=== PATIENT | female | born 1970 | race Caucasian/White ===

== ENCOUNTER → 2017-03-27 | Outpatient (CLI) | payer BC ==
[~2017-03-27] MED LIST: BCPILLS PO
--- NOTE | 2017-03-27 15:46 | DIAGNOSTIC IMAGING REPORT ---
SI JOINTS 3 OR MORE VIEWS CLINICAL HISTORY: 47 years-old Female presenting with M54.5 Lower back painLeft SI joint [id number]. TECHNIQUE: Frontal and bilateral oblique views of the sacroiliac joints were obtained. COMPARISON: None. FINDINGS: Sacroiliac joints congruent and symmetric. No significant degenerative change. No radiographic evidence of erosion or osseous fusion. Arcuate lines intact. No significant osseous abnormality of the lower lumbar spine. IMPRESSION: Normal radiographic appearance of the sacroiliac joints. If there is continuing clinical concern, further evaluation with noncontrast MR could be obtained if clinically indicated. Electronically signed by: Beka Manning M.D. 03/27/2017 3:45 PM Dictated Date/Time: 03/27/2017 3:44 PM
--- NOTE | 2017-03-27 16:10 | DIAGNOSTIC IMAGING REPORT ---
L-SPINE MIN 4 VIEWS ROUTINE CLINICAL HISTORY: Lower back pain. COMPARISON: None FINDINGS: Alignment of the lumbar spine is anatomic. Vertebral body heights are maintained. There is no fracture or suspicious lesion. Moderate disc space narrowing with mild osteophytosis is noted at L5-S1. There is mild multilevel facet arthrosis. Several indeterminate left abdominal calcifications are present. IMPRESSION: 1. No lumbar spine fracture or subluxation. 2. Moderate disc space narrowing at L5-S1. 3. Mild multilevel facet arthrosis. Electronically signed by: Reymundo Paiz M.D. 03/27/2017 4:08 PM Dictated Date/Time: 03/27/2017 4:07 PM
== END | disposition home or self-care (01) ==
LOC: C.RAD1850 14:46
PROVIDERS: ATTEND Physician Assistant
DX: M51.37 Other intervertebral disc degeneration, lumbosacral region (principal)

== ENCOUNTER → 2017-09-28 | Outpatient (CLI) | payer OTHER ==
[2017-09-28 09:38] LABS: BASO % 0.6 %; BASO ABS # 0.04 K/uL (0-0.2); EOS % 3.6 %; EOS ABS # 0.23 K/uL (0-0.5); HEMATOCRIT 37.1 % (37-47); HEMOGLOBIN 12.7 g/dL (12.0-16.0); IG# 0.01 K/uL (0.00-0.02); LYMPH ABS # 2.24 K/uL (1.2-3.4); MEAN CELL VOLUME 86.7 fL (80-100); MEAN CORPUSCULAR HEMOGLOBIN 29.7 pg (25-34); MEAN CORPUSCULAR HGB CONC 34.2 g/dl (32-36); MEAN PLATELET VOLUME 10.3 fL (7.4-10.4); MONO % 8.4 %; MONO ABS # 0.54 K/uL (0.11-0.59); NEUT % 52.2 %; NEUT ABS # 3.34 K/uL (1.4-6.5); PLATELET COUNT 269 K/uL (130-400); RED CELL DISTRIBUTION WIDTH CV 12.4 % (11.5-14.5); RED CELL DISTRIBUTION WIDTH SD 39.5 fL (36.4-46.3)
== END | disposition home or self-care (01) ==
LOC: C.LAB1850 08:36
PROVIDERS: ATTEND Internal Medicine
DX: D64.9 Anemia, unspecified (principal); Z13.220 Encounter for screening for lipoid disorders; Z13.1 Encounter for screening for diabetes mellitus

== ENCOUNTER 2021-05-27 19:31 | Observation (INO) ==
--- NOTE | 2021-05-27 20:22 | Emergency Department Note ---
Impression & Plan Acute viral syndrome, Cough, Elevated troponin I level, Myalgia ED Provider Note Provider: Jorge Luis Castillo MD DATE OF SERVICE: 05/27/2021 CHIEF COMPLAINT: High blood pressure, cough HISTORY OF PRESENT ILLNESS: Patient is a 51-year-old female history of hypertension currently on losartan daily presenting today she had a little bit of sinus congestion/URI symptoms few days before Thanksgi but this lasted only several days since he tested Covid negative at that time. Just over a week ago developed a cough that is become moderately productive with colorful sputum. Denies any significant chest pain but states when she coughs hard she gets a little bit of pain in the lower ribs from this and did get to the point today from the coughing she felt like she would vomit. Denies any significant taste or smell changes or abdominal pain. Denies diarrhea. Reports some generalized fatigue today and a mild headache that is resolved. Did not take anything at home for congestion, cough, or for the borderline temperature of 99 Fahrenheit she reports at home. Patient states her temperature usually runs a little bit lower. She did receive the Covid vaccine. She is not vaccinated for influenza. Denies sick contacts to her knowledge. Her boyfriend is well. States she noted today as she is feeling unwell she took her blood pressure several times and noted blood pressures in the 130s and 140s systolics with sometimes diastolics in the 90s to 100s. Given this came here. No syncope or presyncope or dizziness reported. Again denies any chest pain. Boyfriend is tested negative for Covid but has had a bit of a cough over the past several weeks as well. REVIEW OF SYSTEMS: A total of 10 review of systems was obtained and negative except as stated above in the HPI. PAST MEDICAL HISTORY: As noted above MEDICATIONS: Reviewed includes daily morning losartan SOCIAL HISTORY: Non-smoker, works from home PHYSICAL EXAM: GENERAL: alert and oriented in no acute distress seated in chair Head: normocephalic and atraumatic EYES: No injection, discharge or icterus. NECK: Trachea midline. ENT: Mucous membranes pink and moist. Pharynx without erythema or exudate. LUNGS: Airway patent. No retractions. Breath sounds clear with good air entry bilaterally. HEART: Regular rate and rhythm. No chest wall tenderness ABDOMEN: Soft and non-tender, without guarding or rebound. SKIN: Acyanotic, warm, dry, without rashes EXTREMITIES: Without swelling, tenderness or deformity NEUROLOGICAL: No focal deficits. No aphasia. No facial droop or slurred speech. Ambulatory. EK bpm normal sinus rhythm. No PVC or PAC. No acute ST segment elevation or depression. QTC 418. CONTINUOUS CARDIAC MONITORING: was ordered and showed a heart rate of 60s-80s bpm in normal sinus rhythm 1 view chest x-ray per interpretation: No cardiomegaly or pneumothorax or pneumonia noted. No pleural effusions noted or free air under the diaphragm. No significant acute bony abnormality noted. Patient's laboratory studies and imaging reviewed. Differential includes Viral syndrome, strep pharyngitis, tonsillitis, mononucleosis, retropharyngeal abscess, peritonsillar abscess, otitis media, si nusitis, bronchitis, pneumonia, cardiac, pulmonary as well as other pathologies. IMPRESSION/MEDICAL DECISION MAKING: Patient with mild hypertension at this time. Question if it may be reactive mor e to some generalized illness complaints. Question underlying viral illness given the cough with productive nature and her age, blood work, chest x-ray, and EKG ordered. Is vaccinated for Covid but Covid test and influenza test was ordered. Patient without significant focal neurological deficits. She is well- appearing and not hypoxic. Chest x-ray is reassuring on my interpretation of the film without evidence of significant pulmonary congestion, pleural effusion, pneumothorax, or pneumonia. No cardiomegaly noted either. Blood work without significant leukocytosis or anemia. No significant electrolyte abnormalities or signs of renal dysfunction. No significant transaminitis. EKG is reassuring. Troponin however returns significantly elevated at 0.389. Patient denies chest pain. Negative stress test noted in the chart with cardiology evaluation this past year. Influenza and rapid Covid test were negative. Bio fire ordered to look for other possible viral explanations could be causing inflammatory state and symptoms; question if this is a viral myocarditis. Not hypoxic or tachypneic but a CT of the chest was completed to exclude PE and this was negative but some inflammatory infectious findings were noted on the CT scan per radiologist. Given some aspirin here. Will defer full anticoagulation as I have low suspicion for obstructive coronary artery disease at this time. Updated the patient. Blood pressure is improving at this point. Patient well- appearing. Discussed findings and recommended further evaluation here at the hospital and cardiac evaluation. She was in agreement with this. The hospitalist was contacted. DIAGNOSIS: Elevated troponin, cough, myalgias, viral syndrome DISPOSITION: Being evaluated by the hospitalist Patient was agreeable with this plan. Critical Care I have personally spent 31 minutes of critical care time in the direct management of this patient. This includes bedside care, interpretation of diagnostic studies, and testing, discussion with consultants, patient, and other required patient management activities. These minutes is in excess of all separately billable procedures. Preliminary Findings Only See Final Report For Complete Findings CTA CHEST: Left upper lobe patchy infiltrates including areas with a ground-glass appearance consistent with inflammation/infection, including a viral pneumonia such as COVID-19. No pulmonary artery filling defects to suggest pulmonary artery thrombosis. No thoracic aortic aneurysm or dissection is present. Atherosclerotic vascular calcifications. Heart is mildly enlarged. No evidence for right heart strain. No pericardial fluid or thickening. No pleural effusion or pneumothorax. No acute fracture is identified. Degenerative changes of the thoracic spine. Limited images of the upper abdomen are unremarkable. Radiologist: Mina Keane M.D. Study ready at 23:22 and initial results transmitted at 23:32 Past Med/Surg History Medical History Cardiac murmur Chest pain History of actinic keratosis History of colon polyps Surgical History History of colonoscopy Hx of left breast biopsy Family History Sister Family hx of colon cancer Family hx colonic polyps multiple sisters Breast cancer Father Family hx of colon cancer Family hx colonic polyps Brother Family hx colonic polyps 2 Other No family history of adverse response to anesthesia Social History Smoking Status: Never smoker Tobacco Type: Cigarettes Age Started Using Tobacco: 17; Age Quit Using Tobacco: 47; packs per day: 0.5; Years Smoked: 30; Cigarettes Per Day: 5-10; Second Hand Exposure: No; Hx Alcohol Use: Yes (1 glass of wine a Day ) Alcohol type: beer, wine and hard liquor Hx Substance Use: No Preferred Language: Montenegrin Communication Ability: Effective School Librarian Required: No Beliefs That Will Affect Care: None Current Living Situation: Significant Other Current Living Situation Comment: Lives with boyfriend Feels Safe at Home: Yes Assistive Devices: Contacts and Glasses Allergies Allergies Allergy/AdvReac Type Severity Reaction Status Date / Time No Known Allergies Allergy Unknown Verified 05/27/21 21:59 Home Meds Previous Rx's Medication Instructions Recorded mecobalamin (vitamin B12) 1,000 1,000 mcg PO DAILY #90 tab 07/03/20 mcg chewable tablet losartan 50 mg tablet 50 mg PO DAILY #90 tab 02/14/21 naproxen 500 mg tablet 500 mg PO BID PRN #60 tab 04/02/21 Results & Data (ED) Vital Signs Vital Signs - 24 hr 05/27/21 19:35 05/27/21 21:46 Temperature 37.9 C H Temperature Source Temporal Artery Scan Pulse Rate 101 H Pulse Rate [Left] 76 Pulse Rhythm [Left] Regular Pulse Strength [Left] Normal Respiratory Rate 16 17 Respiratory Effort / Characteristics Non-Labored Respiratory Depth Normal Respiratory Pattern Regular Blood Pressure 145/96 H Blood Pressure [Right Arm] 136/96 Blood Pressure Mean 112 Blood Pressure Mean [Right Arm] 109 Blood Pressure Position Sitting Blood Pressure Position [Right Arm] Sitting Pulse Oximetry 99 99 Oxygen Delivery Method Room Air Room Air Sepsis Recent Fever Within 48 Hours No Sepsis New/Unexplained Change in Mental Status No Sepsis Action Taken by Nursing No Action Required Laboratory Data Result diagrams: 05/27/21 21:47 05/27/21 21:47 Lab Results 05/27/21 05/27/21 05/27/21 Range/Units 21:47 21:47 21:47 WBC 5.70 (4.8-10.8) K/uL RBC 4.50 (4.2-5.4) M/uL Hgb 13.4 (12.0-16.0) g/dL Hct 39.5 (37-47) % MCV 87.8 (80-100) fL MCH 29.8 (25-34) pg MCHC 33.9 (32-36) g/dL RDW Std Deviation 39.3 (36.4-46.3) fL RDW Coeff of Lynette 12.2 (11.5-14.5) % Plt Count 253 (130-400) K/uL MPV 10.0 (7.4-10.4) fL Immature Gran % (Auto) 0.2 % Neut % (Auto) 38.6 % Lymph % (Auto) 45.4 % [place] % (Auto) 11.4 % Eos % (Auto) 3.7 % Baso % (Auto) 0.7 % Neut # (Auto) 2.20 (1.4-6.5) K/uL Lymph # (Auto) 2.59 (1.2-3.4) K/uL [place] # (Auto) 0.65 H (0.11-0.59) K/uL Eos # (Auto) 0.21 (0-0.5) K/uL Baso # (Auto) 0.04 (0-0.2) K/uL Immature Gran # (Auto) 0.01 (0.00-0.02) K/uL Sodium 137 (136-145) mmol/L Potassium 3.4 L (3.5-5.1) mmol/L Chloride 105 (98-107) mmol/L Carbon Dioxide 27 (21-32) mmol/L Anion Gap 5.0 (3-11) BUN 18 (7-18) mg/dl Creatinine 1.11 (0.6-1.2) mg/dl Est Cr Clr Drug Dosing 58.9 ml/min Est GFR ( Amer) 67.5 ml/min Est GFR (Non-Af Amer) 58.3 ml/min BUN/Creatinine Ratio 15.9 (10-20) Glucose 96 (70-99) mg/dl Calcium 9.2 (8.5-10.1) mg/dl Total Bilirubin 0.2 (0.2-1) mg/dl AST 18 (15-37) U/L ALT 26 (12-78) Alkaline Phosphatase 70 (45-117) U/L Troponin I 0.389 H* (0-0.045) ng/ml Total Protein 8.2 (6.4-8.2) gm/dl Albumin 4.0 (3.4-5.0) gm/dl Globulin 4.2 H (2.5-4.0) gm/dl Albumin/Globulin Ratio 1.0 (0.9-2) HCG, Qual Negative (Negative) Influ A Molecular Assay (Negative) Influ B Molecular Assay (Negative) SARS-CoV-2, RNA, NAAT (NEGATIVE) 05/27/21 05/27/21 Range/Units 21:54 21:54 WBC (4.8-10.8) K/uL RBC (4.2-5.4) M/uL Hgb (12.0-16.0) g/dL Hct (37-47) % MCV (80-100) fL MCH (25-34) pg MCHC (32-36) g/dL RDW Std Deviation (36.4-46.3) fL RDW Coeff of Lynette (11.5-14.5) % Plt Count (130-400) K/uL MPV (7.4-10.4) fL Immature Gran % (Auto) % Neut % (Auto) % Lymph % (Auto) % [place] % (Auto) % Eos % (Auto) % Baso % (Auto) % Neut # (Auto) (1.4-6.5) K/uL Lymph # (Auto) (1.2-3.4) K/uL [place] # (Auto) (0.11-0.59) K/uL Eos # (Auto) (0-0.5) K/uL Baso # (Auto) (0-0.2) K/uL Immature Gran # (Auto) (0.00-0.02) K/uL Sodium (136-145) mmol/L Potassium (3.5-5.1) mmol/L Chloride (98-107) mmol/L Carbon Dioxide (21-32) mmol/L Anion Gap (3-11) BUN (7-18) mg/dl Creatinine (0.6-1.2) mg/dl Est Cr Clr Drug Dosing ml/min Est GFR ( Amer) ml/min Est GFR (Non-Af Amer) ml/min BUN/Creatinine Ratio (10-20) Glucose (70-99) mg/dl Calcium (8.5-10.1) mg/dl Total Bilirubin (0.2-1) mg/dl AST (15-37) U/L ALT (12-78) Alkaline Phosphatase (45-117) U/L Troponin I (0-0.045) ng/ml Total Protein (6.4-8.2) gm/dl Albumin (3.4-5.0) gm/dl Globulin (2.5-4.0) gm/dl Albumin/Globulin Ratio (0.9-2) HCG, Qual (Negative) Influ A Molecular Assay Negative (Negative) Influ B Molecular Assay Negative (Negative) SARS-CoV-2, RNA, NAAT NEGATIVE (NEGATIVE) Administered Medications Discontinued Medications Aspirin (Aspirin 81 Mg Chew) 324 mg PO NOW STA Stop: 05/27/21 22:39 Last Admin: 05/27/21 23:16 Dose: 324 mg Documented by: [id number] Ioversol (Optiray 320 125ml) 120 ml IV ONCE ONE Stop: 05/27/21 23:08 Last Admin: 05/27/21 23:07 Dose: 120 ml Documented by: [id number] Discharge Plan Visit Data Chief Complaint: Hypertension Stated Complaint: HIGH BP, ON BP MEDICINE ED Provider: Jorge Luis Castillo Discharge Problem: Acute viral syndrome, Cough, Elevated troponin I level, Myalgia Patient Disposition: Being Evaluated by Hospitalist Forms Stand Alone Forms: [facility] Prescriptions Prescriptions: No Action losartan 50 mg tablet 50 mg PO DAILY Qty: 90 RF: 3 naproxen 500 mg tablet 500 mg PO BID PRN (Reason: pain) Qty: 60 RF: 1 mecobalamin (vitamin B12) 1,000 mcg tablet,chewable 1,000 mcg PO DAILY Qty: 90 RF: 3 Referrals Referrals: Kriss Cooper MD [Primary Care Provider] -
[2021-05-27 22:02] LABS: Basophils # (auto) 0.04 K/uL (0-0.2); Basophils % (auto) 0.7 %; Eosinophils # (auto) 0.21 K/uL (0-0.5); Eosinophils % (auto) 3.7 %; Hematocrit (blood only) 39.5 % (37-47); Hemoglobin 13.4 g/dL (12.0-16.0); Immature Granulocytes # (auto) 0.01 K/uL (0.00-0.02); Immature Granulocytes % (auto) 0.2 %; Lymphocytes # (auto) 2.59 K/uL (1.2-3.4); Lymphocytes % (auto) 45.4 %; Mean Corpuscular Hemoglobin 29.8 pg (25-34); Mean Corpuscular Hgb Conc 33.9 g/dL (32-36); Mean Corpuscular Volume 87.8 fL (80-100); Monocytes # (auto) 0.65 K/uL (0.11-0.59); Monocytes % (auto) 11.4 %; Neutrophils % (auto) 38.6 %; Platelet Count 253 K/uL (130-400); RDW Coefficient of Variation 12.2 % (11.5-14.5); RDW Standard Deviation 39.3 fL (36.4-46.3)
[2021-05-27 22:19] LABS: Influenza A virus by PCR Negative (Negative); Influenza B virus by PCR Negative (Negative)
[2021-05-27 22:21] LABS: BUN Creatinine Ratio 15.9 (10-20); Calcium 9.2 mg/dl (8.5-10.1); Creatinine Clr Calc Pharmacy 58.9 ml/min; Est GFR (African American) 67.5 ml/min; Est GFR (Non-African American) 58.3 ml/min; Potassium 3.4 mmol/L (3.5-5.1)
[2021-05-27 22:31] LABS: Bilirubin,Total 0.2 mg/dl (0.2-1); Globulin 4.2 gm/dl (2.5-4.0); Total Protein 8.2 gm/dl (6.4-8.2); Troponin I 0.389 ng/ml (0-0.045)
[2021-05-27] MEDS ORDERED: ASPIRIN 81 MG CHEW PO STA (22:38)
[2021-05-27] MEDS ORDERED: OPTIRAY 320 125ml IV ONE (23:07)
[2021-05-27 23:36] LABS: Pregnancy Test, Serum Negative (Negative)
--- NOTE | 2021-05-28 01:58 | History & Physical Report ---
Date of Service May 28, 2021 Assessment & Plan (1) Elevated troponin: Plan: 51 yo F w/ pMHx. of dyslipidemia, HTN, low back pain here for evaluation after she noted high blood pressure at home and was found to have an elevated troponin. Elevated troponin Chest pain although reproducible and likely/potentially related to cough Unclear etiology at this time potentially 2/2 zeenat-pericarditis vs. supply demand mismatch 2/2 pneumonia and would want to rule out ACS (risk factors include HTN and dyslipidemia) Viral panel positive for rhinovirus which can rarely cause myopericarditis negative stress ECHO @ 92% MPHR on 02/22/2020 - aspirin given in the ER - trend troponin Q6H X3 - ECHO ordered to evaluate for myopericarditis and look for wall motion abnormalities - monitor on a telemetry floor - a1c and lipid profile ordered for risk stratification Pneumonia, community acquired CT with FANY consolidation along with productive cough nl HR, WBC 13.4, nl. procalcitonin, temp. 37.9, sat. 96% on RA COVID, influenza negative viral panel positive for rhinovirus - started Ceftriaxone and Azithromycin - could likely de-escalate antibiotics quickly given reassuring labs and vitals; negative procal. reassuring but could represent early superimposed bacterial pne umonia - duoneb ordered HTN, stable - continue home Losartan DVT: SCDs Code: full Diet: regular History of Present Illness Chief Complaint: HTN Primary Care Provider: Kriss Cooper MD Ale Bryan has a past medical history of dyslipidemia, HTN, low back pain and ocular migraines. She came in after she noted high blood pressure at home 130's- 140's systolic. She was sick for about 10 day after thanks giving and then developed a cough about one weeks ago. She has congestion, slightly productive cough with, "dime size" colorful brown sputum without blood. She was having a normal day today when she noticed that her heart was racing and had a mild headache that has since resolved. Her heart was racing for approx. one minute and then resolved. She notes dizziness and feeling weak or winded when walking. She has not taken any medication for her symptoms and has been eating and drinking well. Social: working from home tobacco use: not currently using tobacco previously smoked approx. 5 cigarettes a day for 15 year and quit one year ago ETOH: approx. 4 drinks / week Rec. drug use: denies Allergies Allergy/AdvReac Type Severity Reaction Status Date / Time No Known Allergies Allergy Unknown Verified 05/27/21 21:59 Home Medications Medication Instructions Recorded Confirmed Type mecobalamin (vitamin B12) 1,000 1,000 mcg PO DAILY #90 tab 07/03/20 05/27/21 Rx mcg chewable tablet losartan 50 mg tablet 50 mg PO DAILY #90 tab 02/14/21 05/27/21 Rx naproxen 500 mg tablet 500 mg PO BID PRN #60 tab 04/02/21 05/27/21 Rx Past Med/Surg History Medical History Cardiac murmur no coal cutter Chest pain History of actinic keratosis History of colon polyps Surgical History History of colonoscopy Hx of left breast biopsy benign--needle biopsy--only had local anesthesia Family History (Updated 05/28/21 @ 17:29 by Mallory Rudolph) Sister Family hx of colon cancer Family hx colonic polyps multiple sisters Breast cancer Hypertension Father Family hx of colon cancer Family hx colonic polyps Congestive heart failure (CHF) Myocardial infarction Stroke Hypertension Brother Family hx colonic polyps 2 Hypertension Atrial fibrillation Mother Myocardial infarction Hypertension Other No family history of adverse response to anesthesia Social History Smoking Status: Never smoker Tobacco Type: Cigarettes Age Started Using Tobacco: 17; Age Quit Using Tobacco: 47; packs per day: 0.5; Years Smoked: 30; Cigarettes Per Day: 5-10; Second Hand Exposure: No; Hx Alcohol Use: No Hx Substance Use: No Preferred Language: Yi Communication Ability: Effective Maintenance Director Required: No Beliefs That Will Affect Care: None Current Living Situation: Significant Other Current Living Situation Comment: Lives with boyfriend Other Information That Helps Us Care for You: No Feels Safe at Home: Yes Safety Concerns: Feels Safe At This Time Assistive Devices: Glasses Review of Systems Review of Systems: Constitutional: denies nausea, vomiting, weight loss admits chills, fatigue, night sweats Head: denies trauma, LOC, vision changes admits headache Neurologic: denies syncope, focal weakness, numbness and tingling ENT: denies rhinorrhea, swollen lymph nodes admits stuffiness and sore throat Pulm.: admits cough and sputum production GI: denies indigestion, diarrhea, blood in stool : denies dysuria, polyuria, urgency Physical Exam Constitutional: well developed and well nourished; no acute distress Eyes: PERRL, conjunctivae normal, anicteric sclerae ENMT: external ear and nose normal, oropharynx normal Neck: normal visual inspection Respiratory: normal respiratory effort, lungs clear to auscultation Auscultation: no crackles, no rales, no rhonchi and no wheezes Cardiovascular: RRR, no murmur, no edema Chest (Breasts): Additional Comments: tenderness over costochondral cartilage Gastrointestinal (Abdomen): normal bowel sounds, soft, nontender, no hepatosplenomegaly Musculoskeletal: no cyanosis or clubbing, extremities motor strength 5/5 Skin: no rashes, warm and dry Neurologic: no focal motor deficits Psychiatric: A+Ox3, euthymic affect Results & Data Results & Data ([facility]) Vital Signs (Past 12 Hours) Vital Signs Temp Pulse Pulse Resp BP BP Pulse Ox 05/27/21 21:46 76 17 136/96 99 05/27/21 19:35 37.9 C H 101 H 16 145/96 H 99 CBC Results Results Complete Blood Count Results: RBC 4.33 M/uL (4.2-5.4) 05/28/21 WBC 4.50 K/uL (4.8-10.8) L 05/28/21 Hgb 12.8 g/dL (12.0-16.0) 05/28/21 Hct 37.7 % (37-47) 05/28/21 Plt Count 213 K/uL (130-400) 05/28/21 Chemistry (BMP) Results BMP Results: Sodium 138 mmol/L (136-145) 05/28/21 Potassium 3.4 mmol/L (3.5-5.1) L 05/28/21 Chloride 107 mmol/L (98-107) 05/28/21 Carbon Dioxide 26 mmol/L (21-32) 05/28/21 Anion Gap 5.0 (3-11) 05/28/21 BUN 12 mg/dl (7-18) 05/28/21 Creatinine 0.97 mg/dl (0.6-1.2) 05/28/21 Glucose 116 mg/dl (70-99) H 05/28/21 Code Status & VTE Plan VTE Prophylaxis Plan VTE Prophylaxis will be ordered: Yes Supervising Physician Co-Signing Physician Notes Patient seen and examined, chart reviewed, case discussed with Dr. Thrasher and I agree with her assessment and plan as above. In brief, patient is a 51yo female - reports recent URI that occurred before - symptoms lasted appx 10d. She came to the ER today with observation of high blood pressure at home. Found to have elevated troponin Complaining of some chest discomfort Patient is Covid vaccinated x 2 Exam unremarkable. Afebrile, HD stable. No clinical evidence of failure Nontoxic in appearance, no rash MMM, Neck supple +S1/S2, regular, no m/r/g, no reproducible chest wall discomfort Lungs CTA Abd - +BS, soft NT/ND Ext - no edema Labs and images reviewed Assessment/Plan - Mild chest discomfort, elevated troponin, recent URI - ?myopericarditis -Cardiac monitoring -Trend troponin -Tx for possible CAP -Remainder of plan as above Resident Activity Tracking Resident Involvement: Resident Care Provided Care Provided: Adult Hospital Medicine
[2021-05-28] MEDS ORDERED: BENZONATATE 100 MG CAPSULE PO PRN (02:35)
[2021-05-28] MEDS: cefTRIAXone SODIUM 1,000 MG in DEXTROSE 5% 50 ML IV SCH (02:45)
[2021-05-28 03:34] LABS: Adenovirus PCR Not Detected (NotDetected); Bordetella parapertussis PCR Not Detected (NotDetected); Bordetella pertussis PCR Not Detected (NotDetected); Chlamydia pneumoniae PCR Not Detected (NotDetected); Coronavirus 229E PCR Not Detected (NotDetected); Coronavirus CoV-2 (COVID19)PCR Not Detected (NotDetected); Coronavirus HKU1 PCR Not Detected (NotDetected); Coronavirus NL63 PCR Not Detected (NotDetected); Coronavirus OC43PCR Not Detected (NotDetected); Human Metapneumovirus PCR Not Detected (NotDetected); Influenza A PCR Not Detected (NotDetected); Influenza B PCR Not Detected (NotDetected); Mycoplasma pneumoniae PCR Not Detected (NotDetected); Parainfluenza Virus 1 PCR Not Detected (NotDetected); Parainfluenza Virus 2 PCR Not Detected (NotDetected); Parainfluenza Virus 3 PCR Not Detected (NotDetected); Parainfluenza Virus 4 PCR Not Detected (NotDetected); Respiratory Syncytial VirusPCR Not Detected (NotDetected)
[2021-05-28 03:47] LABS: Rhinovirus/Enterovirus PCR DETECTED (NotDetected)
[2021-05-28] MEDS: AZITHROMYCIN 500 MG in DEXTROSE 5% 250 ML IV SCH (03:58)
--- NOTE | 2021-05-28 07:25 | XRay Report ---
SINGLE VIEW CHEST CLINICAL HISTORY: Cough. FINDINGS: An AP, portable, upright chest radiograph is obtained. No prior studies are available for c omparison at the time of dictation. The cardiomediastinal silhouette is unremarkable. There is mild patchy airspace consolidation in the left upper lobe. No large pleural effusion or pneumothorax is se en. The bony thorax is grossly intact. IMPRESSION: Patchy airspace consolidation is seen in the left upper lobe, typical for pneumonia. Clin ical correlation will be required and radiographic follow-up to resolution is recommended. ACT 112: Negative or not required by law. Electronically signed by: Luis Fernando Benavides M.D. 05/28/2021 7:23 AM
--- NOTE | 2021-05-28 07:27 | CT Scan Report ---
CT angio chest PE protocol CLINICAL HISTORY: PE, cough, weak, elev troponin TECHNIQUE: Multidetector row helical CT of the chest was performed. Coronal and sagittal reformations were obtained. Automated dose lowering techniques and/or adjustment according to patient size were u tilized for this exam. Comparison: None available at the time of this dictation. FINDINGS: Lungs and pleura: Groundglass opacities are seen in the left upper lobe. Heart and pericardium: Heart size is normal. No pericardial effusion. Vessels: No evidence of pulmonary embolism. Mediastinum and william: Unremarkable. Chest wall and lower neck: Unremarkable. Abdomen: Unremarkable. Bones: Unremarkable. IMPRESSION: No evidence of pulmonary embolism. ACT 112: Negative or not required by law. Electronically signed by: Yvan Osorio M.D. 05/28/2021 7:26 AM
[2021-05-28] MEDS: ALBUT/IPRATROP 3MG/0.5MG NEB 3 ML VIAL NEB SCH ×3 (07:29→15:39)
[2021-05-28] MEDS: LOSARTAN POTASSIUM 50 MG TAB PO SCH (08:04)
[2021-05-28 08:23] LABS: Hematocrit (blood only) 37.7 % (37-47); Hemoglobin 12.8 g/dL (12.0-16.0); Mean Corpuscular Hemoglobin 29.6 pg (25-34); Mean Corpuscular Volume 87.1 fL (80-100); Mean Platelet Volume 9.6 fL (7.4-10.4); Platelet Count 213 K/uL (130-400); RDW Coefficient of Variation 12.2 % (11.5-14.5); RDW Standard Deviation 39.2 fL (36.4-46.3); Red Blood Count 4.33 M/uL (4.2-5.4)
[2021-05-28 08:41] LABS: BUN Creatinine Ratio 12.5 (10-20); Calcium 8.6 mg/dl (8.5-10.1); Creatinine Clr Calc Pharmacy 67.4 ml/min; Est GFR (African American) 79.5 ml/min; Est GFR (Non-African American) 68.6 ml/min
[2021-05-28 08:45] LABS: ALC (manual) 2.13 K/uL (1.2-3.4); ANC (manual) 1.98 K/uL (1.4-6.5); Eosinophils # (manual) 0.04 K/uL (0-0.5); Eosinophils % (manual) 0.9 %; Lymphocytes # (manual) 1.14 K/uL (1.2-3.4); Lymphocytes % (manual) 25.4 %; Monocytes # (manual) 0.36 K/uL (0.11-0.59); Monocytes % (manual) 7.9 %; Neutrophils # (manual) 1.98 K/uL (1.4-6.5); Neutrophils % (manual) 43.9 %; Reactive Lymphocytes # (manual) 0.99 K/uL; Reactive Lymphocytes % (manual) 21.9 %
[2021-05-28 08:58] LABS: Troponin I 0.361 ng/ml (0-0.045)
[2021-05-28 09:34] LABS: Estimated Average Glucose 103 mg/dl; Hemoglobin A1C 5.2 % (4.5-5.6)
[2021-05-28 09:44] LABS: Potassium 3.4 mmol/L (3.5-5.1)
--- NOTE | 2021-05-28 11:15 | Hospitalist Progress Note ---
Date of Service May 28, 2021 Assessment & Plan (1) Elevated troponin: Plan: 51 yo F w/ pMHx. of dyslipidemia, HTN, low back pain here for evaluation after she noted high blood pressure at home and was found to have an elevated troponin. Elevated troponin Chest pain although reproducible and likely/potentially related to cough Unclear etiology at this time potentially 2/2 zeenat-pericarditis vs. supply demand mismatch 2/2 pneumonia and would want to rule out ACS (risk factors include HTN and dyslipidemia) Viral panel positive for rhinovirus which can rarely cause myopericarditis negative stress ECHO @ 92% MPHR on 02/22/2020 - aspirin given in the ER - trend troponin Q6H X3 - ECHO ordered to evaluate for myopericarditis and look for wall motion abnormalities - monitor on a telemetry floor - a1c and lipid profile ordered for risk stratification Pneumonia, community acquired CT with FANY consolidation along with productive cough nl HR, WBC 13.4, nl. procalcitonin, temp. 37.9, sat. 96% on RA COVID, influenza negative viral panel positive for rhinovirus - started Ceftriaxone and Azithromycin - could likely de-escalate antibiotics quickly given reassuring labs and vitals; negative procal. reassuring but could represent early superimposed bacterial pne umonia - duoneb ordered HTN, stable - continue home Losartan DVT: SCDs Code: full Diet: regular Admission and Anticipated Discharge Date Admission Date: May 28, 2021 Results & Data Results & Data ([facility]) Vital Signs (Past 12 Hours) Vital Signs Temp Pulse Pulse Pulse Resp BP BP 05/28/21 10:41 36.6 C 79 79 18 05/28/21 07:29 75 18 05/28/21 07:24 82 20 126/85 05/28/21 04:26 36.7 C 68 16 126/79 05/28/21 04:11 36.8 C 64 16 126/78 05/28/21 04:06 64 16 124/82 05/28/21 04:00 64 16 124/81 05/28/21 02:04 81 18 139/84 Pulse Ox 05/28/21 10:41 97 05/28/21 07:29 97 05/28/21 07:24 97 05/28/21 04:26 99 05/28/21 04:11 98 05/28/21 04:06 98 05/28/21 04:00 98 05/28/21 02:04 96
--- NOTE | 2021-05-28 12:49 | XCELERA ---
[id number]\[id number]
--- NOTE | 2021-05-28 13:37 | Discharge Summary ---
Date of Service May 28, 2021 Admission HPI Per Admitting Provider Ale Bryan has a past medical history of dyslipidemia, HTN, low back pain and ocular migraines. She came in after she noted high blood pressure at home 130's- 140's systolic. She was sick for about 10 day after thanks giving and then developed a cough about one weeks ago. She has congestion, slightly productive cough with, "dime size" colorful brown sputum without blood. She was having a normal day today when she noticed that her heart was racing and had a mild headache that has since resolved. Her heart was racing for approx. one minute and then resolved. She notes dizziness and feeling weak or winded when walking. She has not taken any medication for her symptoms and has been eating and drinking well. Social: working from home tobacco use: not currently using tobacco previously smoked approx. 5 cigarettes a day for 15 year and quit one year ago ETOH: approx. 4 drinks / week Rec. drug use: denies Admission Exam Per Admitting Provider Constitutional: well developed and well nourished; no acute distress Eyes: PERRL, conjunctivae normal, anicteric sclerae ENMT: external ear and nose normal, oropharynx normal Neck: normal visual inspection Respiratory: normal respiratory effort, lungs clear to auscultation Auscultation: no crackles, no rales, no rhonchi and no wheezes Cardiovascular: RRR, no murmur, no edema Chest (Breasts): Additional Comments: tenderness over costochondral cartilage Gastrointestinal (Abdomen): normal bowel sounds, soft, nontender, no hep atosplenomegaly Musculoskeletal: no cyanosis or clubbing, extremities motor strength 5/5 Skin: no rashes, warm and dry Neurologic: no focal motor deficits Psychiatric: A+Ox3, euthymic affect Discharge Data Allergies Allergy/AdvReac Type Severity Reaction Status Date / Time No Known Allergies Allergy Unknown Verified 05/27/21 21:59 Consultations 05/27/21 23:22 ED Decision to Admit Stat Ordered Studies 05/27/21 22:39 CT angio chest PE protocol Urgent Hospital Course (1) Elevated troponin: 51 yo F w/ pMHx. of dyslipidemia, HTN, low back pain here for evaluation after she noted high blood pressure at home and was found to have an elevated troponin. Elevated troponin Chest pain although reproducible and likely/potentially related to cough Unclear etiology at this time potentially 2/2 zeenat-pericarditis vs. supply demand mismatch 2/2 pneumonia and would want to rule out ACS (risk factors include HTN and dyslipidemia) Viral panel positive for rhinovirus which can rarely cause myopericarditis negative stress ECHO @ 92% MPHR on 02/22/2020 - aspirin given in the ER - trend troponin Q6H X3 - ECHO ordered to evaluate for myopericarditis and look for wall motion abnormalities - monitor on a telemetry floor - a1c and lipid profile ordered for risk stratification Pneumonia, community acquired CT with FANY consolidation along with productive cough nl HR, WBC 13.4, nl. procalcitonin, temp. 37.9, sat. 96% on RA COVID, influenza negative viral panel positive for rhinovirus - started Ceftriaxone and Azithromycin - could likely de-escalate antibiotics quickly given reassuring labs and vitals; negative procal. reassuring but could represent early superimposed bacterial pneumonia - duoneb ordered HTN, stable - continue home Losartan DVT: SCDs Code: full Diet: regular Discharge Plan Discharge Items Reason For Visit: CARDIAC EVALUATION Follow-up/Referrals: Kriss Cooper MD [Primary Care Provider] - Medications and DC Order Prescriptions: No Action losartan 50 mg tablet 50 mg PO DAILY Qty: 90 RF: 3 naproxen 500 mg tablet 500 mg PO BID PRN (Reason: pain) Qty: 60 RF: 1 mecobalamin (vitamin B12) 1,000 mcg tablet,chewable 1,000 mcg PO DAILY Qty: 90 RF: 3 Admission Data Admit Date/Time: 05/28/21 00:13 Attending Provider: Sanjuana Skinner Admit Provider: Huy Thrasher Primary Care Provider: Kriss Cooper V. Other Providers: Vee Busby
[2021-05-28] MEDS ORDERED: ACETAMINOPHEN 325 MG TAB PO PRN ×2 (14:58→19:33)
--- NOTE | 2021-05-28 17:18 | Medical Student Progress Note ---
Date of Service May 28, 2021 Assessment & Plan (1) Chest pain: Plan: 51-year-old female w/ past medical history of dyslipidemia, HTN, low back pain who had been having substernal chest pain, cough and racing of heart here for evaluation was found to have an elevated troponin in ED. Chest pain with elevated troponin: - 05/27: Troponin was .389, 05/28 am: 361, 05/28 pm: .249 - EKG 05/27 with normal sinus rhythm, possible left atrial enlargement -Echo 05/28 unremarkable - chest pain possibly MSK vs pleuritic sec to pneumonia - considering risk factors of strong f/h of ASCVD; h/o past smoking and elevated troponin - continue to follow troponin and review further plan in am. - Total cholesterol 205, A1c 5.2. Pneumonia - labs resulted positive for entero/rhinovirus. -CT 05/27 revealed FANY pneumonia -Crackles heard in FANY on physical exam -Substernal tenderness to palpation L> R -Continue: IV Ceftriaxone 1000 mg QD IV azithromycin 500 mg QD tylenol 325 mg q4h PRN Albuterol/Ipratrop 3mL nebulizer q4h Benzonatate 100 mg PO TID PRN HTN: - stable - continue home Losartan 50 mg QD at home Sleep disturbance - ordered lunesta prn while in hospital since she hasn't had much sleep last night. DVT prophylaxis: SCDs Code: full Diet: regular Dispo: Tele (2) Community acquired pneumonia: Admission and Anticipated Discharge Date Admission Date: May 28, 2021 Supervising Attestation Medical Student Supervision Note: I was personally present during medical student patient encounter and independently interviewed and examined the patient and verified the seals history and physical, reviewed labs and image studies, discussed the case with Mallory Rudolph and agree with the findings and care plan. Trop elevation - ? sec to pericarditis/coronary syndrome considering family history. down trending. Monitor overnight continue IV abx, nebs. Subjective Patient was seen this morning and re-visited in the afternoon. She had no acute events overnight. Her cough is still present and productive, with a wetness and heaviness in the center of her chest. She also shares that she has substernal tenderness, with the left side being more noticeable than the right. She states she feels it most in her diaphragm and is most painful with coughing. It does not radiate and she does not feel discomfort in her lungs or experience difficulty breathing. After her nebulizer treatment in the morning, she felt "a little shakey". She denies nausea, vomiting, diarrhea, fever, shortness of breath, lightheadedness, dizziness, palpitations. She also denies a history of asthma, allergies, COPD. She did share that she has extensive family history of heart concerns and her chart was updated accordingly. This afternoon, she stated that she was feeling about the same that she was upon admission to the ED, with cough and substernal chest pain still present. She had a headache which was treated with Tylenol. Review of Systems Review of Systems: All systems reviewed & are unremarkable except as noted in HPI & below Constitutional: as per Subjective / HPI Eyes: as per Subjective / HPI Ear, Nose, Mouth, Throat: as per Subjective / HPI Respiratory: + cough, + pain with cough and + sputum production Cardiovascular: as per Subjective / HPI and + chest pain Additional Comments: substernal tender chest pain Gastrointestinal: as per Subjective / HPI Physical Exam Constitutional: WD/WN, vitals as above well developed and well nourished Eyes: PERRL, conjunctivae normal, anicteric sclerae ENMT: external ear and nose normal, oropharynx normal Neck: trachea midline, no thyromegaly Respiratory: normal respiratory effort, + cough and symmetric chest movement Auscultation: + crackles crackles left upper lobe Cardiovascular: RRR, no murmur, no edema Heart Sounds: normal S1 and normal S2 Extremities: normal capillary refill Chest (Breasts): Additional Comments: tenderness in substernal region, especially with palpation (across/under bilateral breasts) Skin: no rashes, warm and dry Neurologic: PERRL, EOMI, accommodation nl, no face palsy, no dysarthria Results & Data ([facility]) Vital Signs (Past 12 Hours) Vital Signs Temp Pulse Pulse Resp BP BP Pulse Ox 05/28/21 16:52 36.9 C 92 H 15 127/97 98 05/28/21 15:39 79 16 99 05/28/21 13:33 37.2 C 103 H 16 113/63 98 05/28/21 11:43 69 16 98 05/28/21 10:41 36.6 C 79 79 18 97 05/28/21 07:29 75 18 97 05/28/21 07:24 82 20 126/85 97
[2021-05-28] MEDS ORDERED: ESZOPICLONE 1 MG TAB PO PRN (17:40)
[2021-05-28] MEDS ORDERED: ALBUT/IPRATROP 3MG/0.5MG NEB 3 ML VIAL NEB PRN (17:51)
--- NOTE | 2021-05-28 21:57 | Billing Data ---
Date of Service May 28, 2021 Coding Level of Care Code INT OBSERVATION CARE 52M LVL 2
[2021-05-29] MEDS: cefTRIAXone SODIUM 1,000 MG in DEXTROSE 5% 50 ML IV SCH (06:19)
[2021-05-29] MEDS: AZITHROMYCIN 500 MG in DEXTROSE 5% 250 ML IV SCH (06:32)
[2021-05-29] MEDS: LOSARTAN POTASSIUM 50 MG TAB PO SCH (09:03)
--- NOTE | 2021-05-29 10:11 | Discharge Summary ---
Date of Service May 29, 2021 Admission HPI Per Admitting Provider Ale Bryan has a past medical history of dyslipidemia, HTN, low back pain and ocular migraines. She came in after she noted high blood pressure at home 130's- 140's systolic. She was sick for about 10 day after thanks giving and then developed a cough about one weeks ago. She has congestion, slightly productive cough with, "dime size" colorful brown sputum without blood. She was having a normal day today when she noticed that her heart was racing and had a mild headache that has since resolved. Her heart was racing for approx. one minute and then resolved. She notes dizziness and feeling weak or winded when walking. She has not taken any medication for her symptoms and has been eating and drinking well. Social: working from home tobacco use: not currently using tobacco previously smoked approx. 5 cigarettes a day for 15 year and quit one year ago ETOH: approx. 4 drinks / week Rec. drug use: denies Admission Exam Per Admitting Provider Constitutional: well developed and well nourished; no acute distress Eyes: PERRL, conjunctivae normal, anicteric sclerae ENMT: external ear and nose normal, oropharynx normal Neck: normal visual inspection Respiratory: normal respiratory effort, lungs clear to auscultation Auscultation: no crackles, no rales, no rhonchi and no wheezes Cardiovascular: RRR, no murmur, no edema Chest (Breasts): Additional Comments: tenderness over costochondral cartilage Gastrointestinal (Abdomen): normal bowel sounds, soft, nontender, no hepatospl enomegaly Musculoskeletal: no cyanosis or clubbing, extremities motor strength 5/5 Skin: no rashes, warm and dry Neurologic: no focal motor deficits Psychiatric: A+Ox3, euthymic affect Principal Diagnosis Left upper lobe pneumonia Discharge Exam Constitutional WD/WN, vitals as above Eyes PERRL, conjunctivae normal, anicteric sclerae Respiratory normal respiratory effort, lungs clear to auscultation Cardiovascular RRR, no murmur, no edema Gastrointestinal (Abdomen) normal bowel sounds, soft, nontender, no hepatosplenomegaly Musculoskeletal no cyanosis or clubbing, extremities motor strength 5/5 Discharge Data Allergies Allergy/AdvReac Type Severity Reaction Status Date / Time No Known Allergies Allergy Unknown Verified 05/27/21 21:59 Consultations 05/27/21 23:22 ED Decision to Admit Stat Ordered Studies 05/27/21 22:39 CT angio chest PE protocol Urgent Hospital Course (1) Elevated troponin: 51 yo F w/ pMHx. of dyslipidemia, HTN, low back pain here for evaluation after she noted high blood pressure at home and was found to have an elevated troponin. Elevated troponin: 0.389 on admission, 0.140 on discharge Unclear etiology at this time potentially 2/2 zeenat-pericarditis vs. supply demand mismatch 2/2 pneumonia Viral panel positive for rhinovirus which can rarely cause myopericarditis Strong family history of ASCVD. negative stress ECHO @ 92% MPHR on 02/22/2020 - aspirin given in the ER - trend troponin Q6H X3 - ECHO ordered to evaluate for myopericarditis and look for wall motion abnormalities - negative - monitored on telemetry floor - Cards curbside consult: pt stable enough for outpt. stress test; would see pt. approximately 2 wks after symptoms resolve. PCP Dr. Dominguez made aware of the plan. Pneumonia, community acquired CT with FANY consolidation along with productive cough nl HR, WBC 13.4, nl. procalcitonin, temp. 37.9, sat. 96% on RA COVID, influenza negative viral panel positive for rhinovirus - started Ceftriaxone and Azithromycin; - duoneb PRN - converted Ceftriaxone to PO Cepodoxime 200 mg BID X5 days; Azithromycin once daily 500 mg first day, 250 mg for 4 days. HTN, stable - continue home Losartan Total Time Total Time Spent Total Time Spent (In Minutes): 10 Discharge Plan Discharge Items Patient Disposition: Home - Self-Care Reason For Visit: CARDIAC EVALUATION Discharge Diagnosis: Left upper lobe pneumonia Activity: Per Instructions section Non-emergency contact: Primary Care Provider and Public Relations Manager Call non-emergency contact if: you have any medication questions and your symptoms worsen Follow-up/Referrals: Kriss Cooper MD [Primary Care Provider] - Diet: Regular Addtl Attending Provider Instructions: You were admitted to the hospital for pneumonia and elevated troponins. You were evaluated with imaging and blood work, and were treated with antibiotics and inhalers. Your troponin level, a measure of cardiac stress, were mildly elevated. Since your initial test, all subsequent checks of your troponin were lower than the previous test, or trended downward. You improved clinically over the course of your stay and a re now stable enough to continue your treatment at home. A discharge summary will be sent to your primary care physician to ensure continuity of care. Please bring this discharge summary with you to your next office appointment so that your provider can review it at that time. Follow-up appointments: * Make a follow-up appointment with your PCP within the next week. It is very important that you follow up with them shortly after discharge from the hospital. Your PCP will have you perform a stress echocardiogram to evaluate your heart after your pneumonia symptoms have resolved. * Keep all your follow-up appointments as already scheduled. If you cannot make an appointment, notify your provider. Medications: Your medication list has been reviewed and reconciled upon discharge to ensure accuracy and continuity of care. An updated list of all your medications is included with your hospital discharge paperwork. Please review this list closely, and make note of any changes. * We sent a new medication called Azithromycin to your pharmacy. Take Azithromycin 500 mg once daily for 1 day, then 250 mg once daily for 4 days. * We sent a new medication called Cefpodoxime to your pharmacy. Take Cefpodoxime 200 mg twice daily for 5 days. Take your medications as instructed; do not skip a dose of your medicines. Make sure all of your doctors know every medicine you are taking (including ywtz-afo-glswuol medicines, vitamins, and supplements). Call your primary care provider before taking any new medicines (including yvpn-ebh-qjeagiy medicines, vitamins, and supplements), because some of these may interact with your current medications, or may make your symptoms worse. Tell your primary care provider if you cannot afford your medications. CONTACT YOUR PRIMARY CARE PROVIDER if you experience any of the following: * Sudden shortness of breath with chest pain * Fevers, chills, cough, loss of appetite * Difficulty following your treatment plan, or difficulty taking medications CALL 911 OR GO TO THE EMERGENCY DEPARTMENT if you experience any of the following: * Sudden, severe abdominal pain or nausea/vomiting * Severe chest pain, or chest pain that radiates (moves) to your jaw or arm * Sudden, severe shortness of breath or difficulty breathing Thank you for allowing us to participate in your care. Pending Studies at Discharge: No Stand-Alone Forms: My [facility], Smoking Cessation Medications and DC Order Prescriptions: New cefpodoxime 200 mg tablet 200 mg PO BID 3 Days Qty: 6 RF: 0 azithromycin 500 mg tablet 500 mg PO DAILY 1 Days Qty: 1 RF: 0 Continued losartan 50 mg tablet 50 mg PO DAILY Qty: 90 RF: 3 naproxen 500 mg tablet 500 mg PO BID PRN (Reason: pain) Qty: 60 RF: 1 mecobalamin (vitamin B12) 1,000 mcg tablet,chewable 1,000 mcg PO DAILY Qty: 90 RF: 3 Discharge Orders: Discharge Order (Routine); Ordered 05/29/21 Ordered By: Evelin Henson Admission Data Admit Date/Time: 05/28/21 00:13 Attending Provider: Sanjuana Skinner Admit Provider: Huy Thrasher Primary Care Provider: Kriss Cooper V. Other Interventions: Discharge Summary Assessment (RN) Last Done: 05/29/21 11:40 Supervising Physician Co-Signing Physician Notes Resident Physician Supervision Note: I independently interviewed and examined the patient and verified the seals history and physical, reviewed labs and image studies and agree with resident Dr. Henson findings and care plan. Resident Activity Tracking Resident Involvement: Resident Care Provided Care Provided: Adult Hospital Medicine
--- NOTE | 2021-05-29 13:21 | Electrocardiogram Report ---
Test Reason : Blood Pressure : / mmHG Vent. Rate : 076 BPM Atrial Rate : 076 BPM P-R Int : 172 ms QRS Dur : 082 ms QT Int : 372 ms P-R-T Axes : 064 049 036 degrees QTc Int : 418 ms Normal sinus rhythm Possible Left atrial enlargement Borderline ECG No previous ECGs available Confirmed by Chacho Ferreira ([id number]) on 05/29/2021 1:20:58 PM Referred By: REFERRED SELF Confirmed By:Chacho Ferreira
== END 2021-05-29 12:30 | disposition home or self-care (01) ==
LOC: EDINP 19:31 → ED 19:31 → SUATTDRO 05-28 00:13 → EDINP 05-28 04:06